=== PATIENT | female | born 1950 | race Caucasian/White ===

== ENCOUNTER → 2017-08-09 | Outpatient (CLI) | payer MEDICARE, OTHER ==
[2017-08-09] MEDS: REGADENOSON 0.4 MG/5 ML DISP.SYRIN. IV (10:37)
== END | disposition home or self-care (01) ==
LOC: ECHO 07:52
DX: R06.09 Other forms of dyspnea (principal)
CPT/HCPCS: 78452; 93017; 93306; 96374; 96375; 96376; A9500; J2785